=== PATIENT | female | born 2000 ===

== ENCOUNTER 2023-04-27 12:32 | Outpatient (AMB) | payer OTHER, SELFPAY ==
--- NOTE | 2023-04-27 12:55 | A.OFFVIS_ITS ---
Intake Vital Signs 04/27/23 13:01 Height 5 ft 4 in Weight 155 lb BMI 26.6 BP 110/74 Intake Visit Reasons: Vaginal bleeding [employer] Required: No Information Interpreted: non-clinical & clinical Rental Management Trainee: Rental Management Trainee Present (Ellie) Allergies No Known Allergies Allergy (Verified 04/27/23 13:05) Is last menstrual period known: Yes Last menstrual period: 04/13/23 Post menopausal: No HPI HPI Comments History of Present Illness Details Presenting complaining of daily spotting since she was started on control pills few weeks ago. The patient had a recent Pap smear a months ago at [facility] in [place] according to patient, reports not available [facility] Social History Alcohol intake: current Alcohol intake frequency: holidays/special occasions only Patient Tobacco Use Status: Never used Tobacco Female Reproductive History Menstrual Age of Menarche: 10 Duration of menses: 6-7 days Date of last menstrual period: 04/13/23 control method: pills Total pregnancies: 1 Full term: 1 Number of Living Children: 1 Date of last pap smear: 02/23/23 (negative) History of abnormal pap smear: No Physical Exam Vital Signs: Last Vital Signs BP 110/74 04/27/23 13:01 BMI result Body Mass Index 26.6 Results AMB Test Urine 2 AMB Test Urine Negative Last Edit by PETER Guardado on 04/27/23 13:09 Assessment & Plan Assessment & Plan (1) Abnormal uterine bleeding: Comment: On control pill Code(s): N93.9 - Abnormal uterine and vaginal bleeding, unspecified Plan: Co testing done recently, normal according to the patient but report is not available, GC and chlamydia taken CBC, TSH, HCG, and pelvic ultrasound ordered. Discussed with the patient the different causes of abnormal bleeding including thyroid disorders, uterine and ovarian pathology, and other potential causes. Discussed with the patient the work up including CBC (to r/o anemia), TSH, pelvic Ultrasound. All questions answered and the patient verbalized understanding. Instructed the patient to schedule an appointment for follow-up in few weeks. Orders: Orders AMB HCG Urine Test Today Z32.02 - Encounter for test, result negative HCG Quantitative Today N93.9 - Abnormal uterine and vaginal bleeding, unspecified Prolactin Today N93.9 - Abnormal uterine and vaginal bleeding, unspecified TSH reflex Free T4 Today N93.9 - Abnormal uterine and vaginal bleeding, unspecified Complete Blood Count no Diff Today N93.9 - Abnormal uterine and vaginal bleeding, unspecified US pelvic and transvaginal Today N93.9 - Abnormal uterine and vaginal bleeding, unspecified Coding Level of Care Code New Pt Level 3 (38802) Diagnoses Abnormal uterine bleeding N93.9
[2023-04-27 13:01] VITALS: BP 110/74; BMI 26.6
== END 2023-04-27 13:19 | disposition home or self-care (01) ==
LOC: HO.HWS 12:32
PROVIDERS: PCP Internal Medicine; Visit Provider Obstetrics & Gynecology
DX: Z32.02 Encounter for pregnancy test, result negative (principal); N93.9 Abnormal uterine and vaginal bleeding, unspecified
CPT/HCPCS: 99203

== ENCOUNTER 2023-04-27 12:32 | Outpatient (REF) | payer OTHER, SELFPAY ==
[2023-04-27 14:01] LABS: Hematocrit 39.9 % (37.0-47.0); Hemoglobin 13.1 g/dl (12.0-16.0); Mean Corpuscular HGB Conc 32.8 g/dl (31.0-35.0); Mean Corpuscular Volume 88.3 fL (80.0-98.0); Mean Platelet Volume 10.7 fL (9.4-12.3); Platelet Count 271 X10*3/uL (160-400); Red Blood Count 4.52 X10*6/uL (4.20-5.50); Red Cell Distribution Width 13.2 % (11.0-16.0); White Blood Count 6.5 X10*3/uL (4.8-10.8)
[2023-04-27 15:14] LABS: HCG Quantitative < 2 mIU/mL; TSH reflex Free T4 1.35 uIU/mL (0.32-4.0)
[2023-04-27 18:09] LABS: CT PCR NOT DETECTED (Not Detect.); NG PCR NOT DETECTED (Not Detect.)
[2023-04-28 09:15] LABS: Prolactin 10.8 ng/mL
== END 2023-04-27 12:33 | disposition home or self-care (01) ==
LOC: HO.LAB 12:32
PROVIDERS: PCP Internal Medicine; Visit Provider Obstetrics & Gynecology
DX: N93.9 Abnormal uterine and vaginal bleeding, unspecified (principal)
CPT/HCPCS: 0353U; 81025; 84146; 84443; 84702; 85027; 99202

== ENCOUNTER 2023-04-27 13:26 | Outpatient (REF) | payer OTHER, SELFPAY | END 2023-04-27 13:27 | disposition home or self-care (01) | LOC: HO.LNP 13:26 | PROVIDERS: Visit Provider Obstetrics & Gynecology | DX: Z13.89 Encounter for screening for other disorder (principal) ==

== ENCOUNTER 2023-04-27 15:23 | Outpatient (REF) | payer OTHER, SELFPAY | END 2023-04-27 15:24 | disposition home or self-care (01) | LOC: HO.LNP 15:23 | PROVIDERS: Visit Provider Obstetrics & Gynecology | DX: Z13.89 Encounter for screening for other disorder (principal) ==

== ENCOUNTER 2023-04-28 15:52 | Outpatient (REF) | payer OTHER, SELFPAY ==
--- NOTE | ~2023-04-28 | US_ITS ---
EXAMINATION: US PELVIS CLINICAL INFORMATION: Abnormal uterine bleeding. LMP 04/13/2023. COMPARISON: None available. TECHNIQUE: Ultrasound of the pelvis is performed using both transabdominal and transvaginal transducers along with Doppler. Transvaginal imaging is performed due to inadequate visualization transabdominally. FINDINGS: Uterus: The uterus is anteverted and measures 7.7 x 3 x 4 cm. The double wall endometrial thickness is 6 mm. The uterus is smooth in contour and has normal myometrial echogenicity. No visible fibroid. Adnexa: Ovaries are normal in morphology with preserved flow at the moment of this examination. There is no pelvic ascites or fluid collection. Right ovary measures 2.7 x 1.8 x 2 cm., 5.3 mL. Left ovary measures 2.4 x 1.8 x 1.5 cm., 3.4 mL. US/US pelvic and transvaginal IMPRESSION: No acute sonographic abnormalities.
== END 2023-04-28 15:53 | disposition home or self-care (01) ==
LOC: HO.US 15:52
PROVIDERS: PCP Internal Medicine; Visit Provider Obstetrics & Gynecology
DX: N93.9 Abnormal uterine and vaginal bleeding, unspecified (principal)
CPT/HCPCS: 76830; 76856

== ENCOUNTER 2023-05-03 15:06 | Emergency (ER) | payer OTHER, SELFPAY ==
[2023-05-03 16:20] VITALS: BP 115/56; PULSE 69; RESP 16; TEMP 36.2; O2SAT 97; BMI 26.4
--- NOTE | 2023-05-03 16:26 | ED.GENADULT ---
HPI - General Adult General Chief complaint: Abdominal Pain Stated complaint: lower abdominal pain Time Seen by Provider: 05/03/23 19:51 Source: patient Mode of arrival: ambulatory Limitations: no limitations History of Present Illness HPI narrative: Patient otherwise healthy comes here for nausea , diffuse abdominal pain and diarrhea started earlier today no fever no chills, no urinary complaints had 2-3 times vomiting and had 5 -6 times watery diarrhea no fever no chills no urinary complaints no recent travel antibiotic use Related Data Home Medications Medication Instructions Recorded Confirmed norethindrone 1 mg-ethinyl 1 tab PO DAILY 04/27/23 estradiol 20 mcg (21)-iron 75 mg (7) tablet (Lexi Fe 10/02 (28)) Previous Rx's Medication Instructions Recorded loperamide 2 mg tablet 2 mg PO Q6H PRN loose stool #7 tabs 05/03/23 (Anti-Diarrheal (loperamide)) ondansetron 4 mg disintegrating 4 mg PO Q6-8H PRN nausea and 05/03/23 tablet vomiting #7 tabs Allergies Allergy/AdvReac Type Severity Reaction Status Date / Time No Known Allergies Allergy Verified 05/03/23 16:20 Review of Systems Review of Systems: Yes all other systems are reviewed and are negative [facility] Social History Social History Alcohol intake: current Alcohol intake frequency: holidays/special occasions only Patient Tobacco Use Status: Never used Tobacco Smoked in Last 30 Days: No Use of substances other than those prescribed or required for medical reasons: No Advance Directives: No Advance Directives Information Provided: Yes Patient : No (pt had positive then negative test) Physical Exam ED Vital Signs: Vital Signs - 24 hr 05/03/23 16:20 05/03/23 19:51 Temperature 97.1 F 98.2 F Pulse Rate 69 78 Respiratory Rate 16 16 Blood Pressure 115/56 L 125/67 Pulse Oximetry 97 99 Oxygen Delivery Method Room Air Room Air BMI result Body Mass Index 26.4 Appearance: Alert. Oriented X3. No acute distress. Eyes: PERRLA, No Nystagmus ENT: Pharynx normal. Oral Mucosa moist Neck: Normal inspection. Neck supple. CVS: Normal heart rate and rhythm. Pulses normal. Respiratory: No respiratory distress. Equal air entry bilateral, Abdomen: Soft and nontender. Bowel sounds are present, no mass palpable, no CVA tenderness Skin: Skin warm and dry. Normal skin color. Normal skin turgor. Neuro: Oriented X 3. Course Course Course Narrative: This is an RME: Additional HPI, ROS, PE not included below will be deferred to primary provider. This is a [id number] presenting to the emergency department for evaluation of intermittent abdominal pain after eating lunch today. She is endorsing nausea and diarrhea, denies vomiting. She also endorses vaginal bleeding, recent positive test 2 months ago but has been followed by negative tests with OBGYN. She was started on control but has not stopped vaginally bleeding since. Abdomen is soft, nontender. Plan: labs, UA. Medications Administered Discontinued Medications Generic Name Dose Route Start Last Admin Trade Name Freq PRN Reason Stop Dose Admin Loperamide HCl 2 mg 05/03/23 20:06 05/03/23 20:13 Loperamide Hcl 2 Mg Capsule PO 05/03/23 20:07 2 mg ONCE ONE Administration Ondansetron HCl 4 mg 05/03/23 20:06 05/03/23 20:13 Ondansetron Odt 4 Mg Tab.Rapdis TRANSLINGU 05/03/23 20:07 4 mg ONCE ONE Administration Medical Decision Making Medical Decision Making [facility] Narrative: Patient has acute gastroenteritis no signs of dehydration significant abdominal pain give her symptomatic treatment Zofran and Imodium labs are stable Lab Data [facility] Lab Attestation statement: I reviewed the patient's lab results. 05/03/23 16:49 05/03/23 16:49 Labs: Lab Results 05/03/23 05/03/23 05/03/23 Range/Units 16:49 16:49 16:49 WBC 6.8 (4.8-10.8) X10*3/uL RBC 4.56 (4.20-5.50) X10*6/uL Hgb 13.1 (12.0-16.0) g/dl Hct 40.2 (37.0-47.0) % MCV 88.2 (80.0-98.0) fL MCH 28.7 (27.0-33.0) pg MCHC 32.6 (31.0-35.0) g/dl RDW 13.2 (11.0-16.0) % Plt Count 272 (160-400) X10*3/uL MPV 10.1 (9.4-12.3) fL Immature Gran % (Auto) 0.1 (0.0-0.4) % Neut % (Auto) 63.7 (45-73) % Lymph % (Auto) 25.3 (20-40) % [place] % (Auto) 10.2 (2-11) % Eos % (Auto) 0.1 (0-4) % Baso % (Auto) 0.6 (0-2) % Lymph # (Auto) 1.7 (1.2-4.9) X10*3/uL [place] # (Auto) 0.7 (0.1-1.2) X10*3/uL Eos # (Auto) 0.0 (0.0-0.4) X10*3/uL Baso # (Auto) 0.0 (0.0-0.2) X10*3/uL Abs Immat Gran (auto) 0.01 (0.00-0.03) X10*3/uL Absolute Neuts (auto) 4.3 (2.0-8.3) x10*3/uL Absolute Nucleated RBC 0.000 (0.0-0.012) X10*3/uL Nucleated RBC % (auto) 0.0 (0.0-0.2) /100WBC Sodium 140 (135-145) mmol/L Potassium 3.7 (3.3-5.1) mmol/L Chloride 109 H (96-108) mmol/L Carbon Dioxide 25 (22-29) mmol/L Anion Gap 10 L (12-20) BUN 13 (9-16) mg/dL Creatinine 0.71 (0.5-1.4) mg/dL Estim Creat Clear Calc 116.1 Estimated GFR > 60 Random Glucose 86 (60-115) mg/dL Calcium 9.7 (8.4-10.2) mg/dL Magnesium 2.3 (1.6-2.6) mg/dL Total Bilirubin 0.2 (0.0-1.0) mg/dL Direct Bilirubin < 0.2 (0.0-0.5) mg/dL AST 18 (5-31) U/L ALT 11 (0-31) U/L Alkaline Phosphatase 73 (39-117) U/L Total Protein 7.7 (6.5-8.0) g/dL Albumin 4.2 (3.5-5.0) g/dL Lipase 36 (8-78) U/L Beta HCG, Quant < 2 mIU/mL Discharge Plan Discharge Clinical Impression: Gastroenteritis Patient Disposition: Home, Self-Care Instructions: Gastroenteritis (ED) Additional Instructions: Drink plenty of fluids Medicine for nausea as prescribed Take Imodium for severe diarrhea only Prescriptions: New ondansetron 4 mg tablet,disintegrating 4 mg PO Q6-8H PRN (Reason: nausea and vomiting) Qty: 7 0RF loperamide [Anti-Diarrheal (loperamide)] 2 mg tablet 2 mg PO Q6H PRN (Reason: loose stool) Qty: 7 0RF No Action norethindrone-e.estradiol-iron [Lexi Fe 10/02 ()] 1 mg-20 mcg (21)/75 mg (7) tablet 1 tab PO DAILY
[2023-05-03 16:52] LABS: MANUAL DIFF FLAG NO
[2023-05-03 16:54] LABS: Basophils Percent Auto 0.6 % (0-2); Eosinophils Percent Auto 0.1 % (0-4); Hematocrit 40.2 % (37.0-47.0); Hemoglobin 13.1 g/dl (12.0-16.0); Imm Gran Abs Auto 0.01 X10*3/uL (0.00-0.03); Imm Gran Pct Auto 0.1 % (0.0-0.4); Lymphocytes Absolute Auto 1.7 X10*3/uL (1.2-4.9); Lymphocytes Percent Auto 25.3 % (20-40); Mean Corpuscular HGB Conc 32.6 g/dl (31.0-35.0); Mean Corpuscular Hemoglobin 28.7 pg (27.0-33.0); Mean Corpuscular Volume 88.2 fL (80.0-98.0); Mean Platelet Volume 10.1 fL (9.4-12.3); Monocytes Absolute Auto 0.7 X10*3/uL (0.1-1.2); Monocytes Percent Auto 10.2 % (2-11); Neutrophils Absolute Auto 4.3 x10*3/uL (2.0-8.3); Neutrophils Percent Auto 63.7 % (45-73); Platelet Count 272 X10*3/uL (160-400); Red Blood Count 4.56 X10*6/uL (4.20-5.50); Red Cell Distribution Width 13.2 % (11.0-16.0); White Blood Count 6.8 X10*3/uL (4.8-10.8)
[2023-05-03 17:07] LABS: Alanine Aminotransferase 11 U/L (0-31); Albumin Level 4.2 g/dL (3.5-5.0); Alkaline Phosphatase 73 U/L (39-117); Anion Gap 10 (12-20); Aspartate Amino Transferase 18 U/L (5-31); Bilirubin Direct < 0.2 mg/dL (0.0-0.5); Bilirubin Total 0.2 mg/dL (0.0-1.0); Blood Urea Nitrogen 13 mg/dL (9-16); Calcium 9.7 mg/dL (8.4-10.2); Carbon Dioxide 25 mmol/L (22-29); Chloride 109 mmol/L (96-108); Creatinine Clr Calc Pharmacy 116.1; Estimated Glomerular Filt Rate > 60; Glucose Random 86 mg/dL (60-115); Lipase 36 U/L (8-78); Magnesium 2.3 mg/dL (1.6-2.6); Potassium 3.7 mmol/L (3.3-5.1); Sodium 140 mmol/L (135-145); Total Protein 7.7 g/dL (6.5-8.0)
[2023-05-03 17:26] LABS: HCG Quantitative < 2 mIU/mL
[2023-05-03 19:51] VITALS: BP 125/67; PULSE 78; RESP 16; TEMP 36.8; O2SAT 99
--- NOTE | 2023-05-03 19:52 | PC.NURSE ---
Pt reporting intermittent abdominal pain, currently denies pain, last episode was 45 minutes ago. When patient has pain it is 10/10 in the upper right andl left quadrants. Offers no complaints to this RN at this time, respirations even and unlabored, skin pwd, alert and oriented x4.
[2023-05-03] MEDS: Ondansetron ODT 4 MG TAB.RAPDIS TRANSLINGU (20:13)
[2023-05-03] MEDS: Loperamide HCl 2 MG CAPSULE PO (20:13)
== END 2023-05-03 20:24 | disposition home or self-care (01) ==
PROVIDERS: Physician Assistant Medical; Emergency Provider Internal Medicine
DX: K52.9 Noninfective gastroenteritis and colitis, unspecified (principal); R10.30 Lower abdominal pain, unspecified; Z79.899 Other long term (current) drug therapy
CPT/HCPCS: 36415; 80048; 80076; 83690; 83735; 84702; 85025; 99283; 99284

== ENCOUNTER 2023-06-17 12:01 | Outpatient (AMB) | payer OTHER, SELFPAY ==
--- NOTE | 2023-06-17 12:16 | MHC.OFFVIS ---
Intake Vital Signs 06/17/23 12:18 Height 5 ft 4 in Weight 152 lb 1.903 oz BMI 26.1 BP 118/70 Intake Visit Reasons: Ultrasound/Medication follow up Allergies No Known Allergies Allergy (Verified 05/03/23 16:20) HPI HPI Comments History of Present Illness Details The patient is presenting for follow-up to discuss the results of her abnormal uterine bleeding workup and options of treatment. The following workup was done.: H&H= 13.1/40.2 TSH, hCG, prolactin, GC and chlamydia were negative. Co testing was done according to patient recently and was negative. Pelvic ultrasound was unremarkable The patient decided to discontinue her control pills and since then has been having regular menstrual cycles. She is interested in discussing different options of [place] [facility] Social History Alcohol intake: current Alcohol intake frequency: holidays/special occasions only Patient Tobacco Use Status: Never used Tobacco Female Reproductive History Menstrual Age of Menarche: 10 Review of Systems Const All systems reviewed & are unremarkable except as noted in HPI and below Reports as per HPI and Reports no additional complaints GI Reports no additional complaints Reports no additional complaints Assessment & Plan Assessment & Plan (1) Abnormal uterine bleeding: Code(s): N93.9 - Abnormal uterine and vaginal bleeding, unspecified Plan: Discussed with the patient the results of the workup, all questions answered, the patient verbalized understanding (2) Family planning: Code(s): Z30.09 - Encounter for other general counseling and advice on contraception Plan: Discussed with the patient the different options of control including control pills/Nuvaring, DMPA, different types of IUD ?s, sterilization. All the pros, cons, risks and benefits of each were discussed with the patient. The patient decided to go ahead with an IUD, so a more detailed discussion was carried on including types (Progesterone, Copper), mechanism of action, risks (infection, uterine perforation, failure with ectopic , septic AB, dysmenorrhea with Paraguard, others) benefits (efficient contraceptive method, hypo menorrhea with Progesterone IUD, others) GC/CG will be taken and the patient was asked to call day one of next cycle for IUD insertion. Coding Level of Care Code Est Pt Level 3 (77761) Diagnoses Abnormal uterine bleeding N93.9 Family planning Z30.09
[2023-06-17 12:18] VITALS: BP 118/70; BMI 26.1
== END 2023-06-17 15:09 | disposition home or self-care (01) ==
PROVIDERS: PCP Internal Medicine; Visit Provider Obstetrics & Gynecology
DX: N93.9 Abnormal uterine and vaginal bleeding, unspecified (principal); Z30.09 Encounter for other general counseling and advice on contraception
CPT/HCPCS: 99213

== ENCOUNTER → 2023-06-17 12:01 | Outpatient (BNVA) | payer OTHER, SELFPAY | PROVIDERS: PCP Internal Medicine; Visit Provider Obstetrics & Gynecology | DX: Z30.09 Encounter for other general counseling and advice on contraception (principal); N93.9 Abnormal uterine and vaginal bleeding, unspecified | CPT/HCPCS: 99212 ==

== ENCOUNTER 2023-06-26 11:54 | Emergency (ER) | payer OTHER, SELFPAY ==
--- NOTE | 2023-06-26 12:32 | ED.ABDPAIN ---
HPI - Abdominal Pain General Chief Complaint: Abdominal Pain Stated Complaint: upper abd pain Time Seen by Provider: 06/26/23 21:32 Source: patient Mode of arrival: ambulatory Limitations: no limitations History of Present Illness HPI narrative: no PMH on and off abdominal pain for 2 months happened 2 weeks ago no triggers no associated symptoms takes her upper abdomen and makes it tight. resolves after time happened again today currently not present has upcoming US MD elicited complaint: abdominal pain Pertinent past history: none Onset (ago): week(s) (2 weeks but started about 2 months ago ) Pain Consistency: now resolved Location: epigastric Severity: mild Quality: cramping Radiation: none Migration to: no migration Exacerbating factors: nothing Relieving factors: nothing Associated symptoms: denies other symptoms Related Data Previous Rx's Medication Instructions Recorded loperamide 2 mg tablet 2 mg PO Q6H PRN loose stool #7 tabs 05/03/23 (Anti-Diarrheal (loperamide)) ondansetron 4 mg disintegrating 4 mg PO Q6-8H PRN nausea and 05/03/23 tablet vomiting #7 tabs nitrofurantoin 100 mg PO Q12H 5 days #10 caps 06/26/23 monohydrate/macrocrystals 100 mg capsule (Macrobid) Allergies Allergy/AdvReac Type Severity Reaction Status Date / Time No Known Allergies Allergy Verified 05/03/23 16:20 Review of Systems Review of Systems Constitutional : No Weight loss, No Fever, No Chills ENT/Mouth : No sore throat, No Rhinorrhea Eyes: No Swelling, No Redness Cardiovascular : No Chest Pain, No SOB, NoEdema Respiratory : No Cough, No Sputum, No Wheezing Gastrointestinal : Nausea, no Vomiting, no Diarrhea, positive abdominal Pain, No Hematochezia, No Melena Genitourinary : No Dysuria, No Urinary Frequency, No Hematuria, No Urgency Musculoskeletal : No joint pain, No Myalgias, No Joint Swelling Skin : No Skin Lesions, No rash Neuro : No Weakness, No Numbness, No Dizziness, No Headache Psych : No Anxiety/Panic, No Depression Heme/Lymph: No Bruising, No Lymphadenopathy Endocrine : No Polyuria, No Polydipsia All other systems reviewed and are negative. [facility] Past Medical History Source: old records reviewed Medical History Abnormal uterine bleeding Social History Social History Alcohol intake: current Alcohol intake frequency: holidays/special occasions only Patient Tobacco Use Status: Never used Tobacco Advance Directives: No Advance Directives Information Provided: No Physical Exam ED Vital Signs: Vital Signs - 24 hr 06/26/23 12:33 06/26/23 20:07 Temperature 97.7 F 97.4 F Pulse Rate 71 86 Respiratory Rate 14 17 Blood Pressure 110/50 L 118/70 Pulse Oximetry 99 97 Oxygen Delivery Method Room Air Room Air BMI result Body Mass Index 26.9 Appearance: Alert. Oriented X3. No acute distress. Eyes: Pupils equal, round and reactive to light. ENT: Pharynx normal. Neck: Normal inspection. Neck supple. CVS: Normal heart rate and rhythm. Pulses normal. Respiratory: No respiratory distress. Breath sounds normal. Abdomen: Soft and nontender. Skin: Skin warm and dry. Normal skin color. Normal skin turgor. Extremities: No lower extremity edema. No calf ttp Neuro: Oriented X 3. No motor deficit. No sensory deficit. Procedures Procedure Narrative Procedure Narrative: bedside US performed by me: normal GB no stones, GB wall thickness and no pericholecystic fluid normal kidneys bilaterally no stones or hydro Course Course Course Narrative: This is a rapid medical exam. Deferred additional HPI, ROS, PE to primary provider. 23 yo female with no known medical history here with complaints of intermittent upper abdominal pain since April. Had episode this morning which was associated with diarrhea Has outpatient abdominal US scheduled for . No previous abdominal surgeries. No current abdominal pain. WIll obtain labs, UA VSS Medical Decision Making Medical Decision Making MDM Narrative: 23 yo female no sig PMH here with benign abdominal exam on and off abdominal pain with recent normal ovarian US labs are stable but has intermittent upper abdominal pain at this time will obtain basic labs, bedside US of GB - UA is pos will start on macrobid. She has formal US of abdomen pending. Differential Diagnosis Differential Diagnoses: The differential diagnosis associated with the presentation includes gastritis, abdominal pain, UTI, biliary colic Admission/Observation Consideration of admission/observation: Escalation of care including admission/observation considered labs stable, not toxic, abdominal exam benign can be managed as outpatient Lab Data [facility] Lab Attestation statement: I reviewed the patient's lab results. 06/26/23 13:19 06/26/23 13:19 Labs: Lab Results 06/26/23 Range/Units 13:19 WBC 8.7 (4.8-10.8) X10*3/uL RBC 4.57 (4.20-5.50) X10*6/uL Hgb 13.2 (12.0-16.0) g/dl Hct 40.3 (37.0-47.0) % MCV 88.2 (80.0-98.0) fL MCH 28.9 (27.0-33.0) pg MCHC 32.8 (31.0-35.0) g/dl RDW 12.9 (11.0-16.0) % Plt Count 240 (160-400) X10*3/uL MPV 9.7 (9.4-12.3) fL Immature Gran % (Auto) 0.2 (0.0-0.4) % Neut % (Auto) 66.1 (45-73) % Lymph % (Auto) 24.5 (20-40) % [place] % (Auto) 8.5 (2-11) % Eos % (Auto) 0.2 (0-4) % Baso % (Auto) 0.5 (0-2) % Lymph # (Auto) 2.1 (1.2-4.9) X10*3/uL [place] # (Auto) 0.7 (0.1-1.2) X10*3/uL Eos # (Auto) 0.0 (0.0-0.4) X10*3/uL Baso # (Auto) 0.0 (0.0-0.2) X10*3/uL Abs Immat Gran (auto) 0.02 (0.00-0.03) X10*3/uL Absolute Neuts (auto) 5.7 (2.0-8.3) x10*3/uL Absolute Nucleated RBC 0.000 (0.0-0.012) X10*3/uL Nucleated RBC % (auto) 0.0 (0.0-0.2) /100WBC Sodium 140 (135-145) mmol/L Potassium 3.9 (3.3-5.1) mmol/L Chloride 106 (96-108) mmol/L Carbon Dioxide 23 (22-29) mmol/L Anion Gap 15 (12-20) BUN 11 (9-16) mg/dL Creatinine 0.69 (0.5-1.4) mg/dL Estim Creat Clear Calc 120.6 Estimated GFR > 60 Random Glucose 84 (60-115) mg/dL Calcium 9.7 (8.4-10.2) mg/dL Total Bilirubin 0.5 (0.0-1.0) mg/dL Direct Bilirubin 0.2 (0.0-0.5) mg/dL AST 18 (5-31) U/L ALT 9 (0-31) U/L Alkaline Phosphatase 100 (39-117) U/L Total Protein 7.7 (6.5-8.0) g/dL Albumin 4.4 (3.5-5.0) g/dL Lipase 20 (8-78) U/L Urine Color Yellow Urine Appearance Cloudy Urine pH 5.5 (5.0-9.0) Ur Specific [place] 1.020 (1.005-1.025) Urine Protein Negative (Neg-Trace) mg/dL Urine Glucose (UA) Negative (Negative) mg/dL Urine Ketones Negative (Negative) mg/dL Urine Blood Negative (Negative) Urine Nitrite Negative (Negative) Ur Leukocyte Esterase Moderate (2+) H (Negative) Urine RBC 0-2 (0-2) /HPF Urine WBC 21-50 H (0-5) /HPF Ur Squamous Epith Cells 11-20 (0-2) /HPF Urine Bacteria 4+ (None Seen) Hyaline Casts 0-2 (0-2) /LPF Urine Test NEGATIVE (NEGATIVE) Independent Interpretation I performed an independent interpretation of an: Ultrasound Radiology Impression Discussion of test interpretation with radiology: I have reviewed the radiologist's reading. External Record Review External record reviewed: Office record Prescription Management I considered prescription management with: Antibiotic Discharge Plan Discharge Clinical Impression: Acute UTI Abdominal pain Qualifiers: Abdominal location: epigastric Qualified Code(s): R10.13 - Epigastric pain Patient Disposition: Home, Self-Care Instructions: Urinary Tract Infection in Women (ED), Abdominal Pain (ED) Additional Instructions: lab counts, kidney function, liver and pancreas were normal. please keep your ultrasound appointment. you have a bladder infection. return for worsening pain, vomiting, fevers, inability to eat or drink or any other concerns. Prescriptions: New nitrofurantoin monohyd/m-cryst [Macrobid] 100 mg capsule 100 mg PO Q12H 5 Days Qty: 10 0RF Rx Instructions: must administer with a meal/food No Action ondansetron 4 mg tablet,disintegrating 4 mg PO Q6-8H PRN (Reason: nausea and vomiting) Qty: 7 0RF loperamide [Anti-Diarrheal (loperamide)] 2 mg tablet 2 mg PO Q6H PRN (Reason: loose stool) Qty: 7 0RF
[2023-06-26 12:33] VITALS: BP 110/50; PULSE 71; RESP 14; TEMP 36.5; O2SAT 99; BMI 26.9
[2023-06-26 13:26] LABS: MANUAL DIFF FLAG NO
[2023-06-26 13:27] LABS: Basophils Percent Auto 0.5 % (0-2); Eosinophils Percent Auto 0.2 % (0-4); Hematocrit 40.3 % (37.0-47.0); Hemoglobin 13.2 g/dl (12.0-16.0); Imm Gran Abs Auto 0.02 X10*3/uL (0.00-0.03); Imm Gran Pct Auto 0.2 % (0.0-0.4); Lymphocytes Absolute Auto 2.1 X10*3/uL (1.2-4.9); Lymphocytes Percent Auto 24.5 % (20-40); Mean Corpuscular HGB Conc 32.8 g/dl (31.0-35.0); Mean Corpuscular Hemoglobin 28.9 pg (27.0-33.0); Mean Corpuscular Volume 88.2 fL (80.0-98.0); Mean Platelet Volume 9.7 fL (9.4-12.3); Monocytes Absolute Auto 0.7 X10*3/uL (0.1-1.2); Monocytes Percent Auto 8.5 % (2-11); Neutrophils Absolute Auto 5.7 x10*3/uL (2.0-8.3); Neutrophils Percent Auto 66.1 % (45-73); Platelet Count 240 X10*3/uL (160-400); Red Blood Count 4.57 X10*6/uL (4.20-5.50); Red Cell Distribution Width 12.9 % (11.0-16.0); White Blood Count 8.7 X10*3/uL (4.8-10.8)
[2023-06-26 13:31] LABS: Appearance Urine Cloudy; Color Urine Yellow; Glucose Urine UA Negative (Negative); Leukocyte Esterase Urine Moderate (2+) (Negative); Nitrite Urine Negative (Negative); PH 5.5 (5.0-9.0); UMIC TRIGGER UACC YES; Urine Blood Negative (Negative); Urine Ketones Negative (Negative); Urine Protein Negative (Neg-Trace)
[2023-06-26 13:34] LABS: UPreg QC Valid YES; Urine Pregnancy NEGATIVE (NEGATIVE)
[2023-06-26 13:36] LABS: Bacteria Urine 4+ (None Seen); Hyaline Casts Urine 0-2 /LPF (0-2); RBC Urine 0-2 /HPF (0-2); UACC Culture Trigger YES; WBC Urine 21-50 /HPF (0-5)
[2023-06-26 13:44] LABS: Alanine Aminotransferase 9 U/L (0-31); Albumin Level 4.4 g/dL (3.5-5.0); Alkaline Phosphatase 100 U/L (39-117); Anion Gap 15 (12-20); Aspartate Amino Transferase 18 U/L (5-31); Bilirubin Direct 0.2 mg/dL (0.0-0.5); Bilirubin Total 0.5 mg/dL (0.0-1.0); Blood Urea Nitrogen 11 mg/dL (9-16); Calcium 9.7 mg/dL (8.4-10.2); Carbon Dioxide 23 mmol/L (22-29); Chloride 106 mmol/L (96-108); Creatinine Clr Calc Pharmacy 120.6; Estimated Glomerular Filt Rate > 60; Glucose Random 84 mg/dL (60-115); Lipase 20 U/L (8-78); Potassium 3.9 mmol/L (3.3-5.1); Sodium 140 mmol/L (135-145); Total Protein 7.7 g/dL (6.5-8.0)
[2023-06-26 20:07] VITALS: BP 118/70; PULSE 86; RESP 17; TEMP 36.3; O2SAT 97
[2023-06-26] MEDS: Nitrofurantoin Monohyd/M-Cryst 100 MG CAPSULE PO (22:04)
== END 2023-06-26 22:07 | disposition home or self-care (01) ==
PROVIDERS: Nurse Practitioner Family; Emergency Provider Emergency Medicine
DX: N39.0 Urinary tract infection, site not specified (principal); R10.10 Upper abdominal pain, unspecified; R10.13 Epigastric pain
CPT/HCPCS: 36415; 80048; 80076; 81001; 81025; 83690; 85025; 87086; 99283